=== PATIENT | female | born 1945 | race Caucasian/White ===

== ENCOUNTER 2022-04-16 16:24 | Inpatient (IN) ==
[2022-04-16] MEDS ORDERED: cefTRIAXone SODIUM 2,000 MG/70 ML BAG IV STA (18:59)
--- NOTE | 2022-04-16 19:04 | Emergency Department Note ---
Impression & Plan Cellulitis, Laceration of left lower leg, USP current use of anticoagulant ED Provider Note NAME: ALECIA GA AGE: 76 SEX: F : 1945 ARRIVES VIA: Walk-In INFORMANT: Patient ED PROVIDER(S): Lee Brandon DO CHIEF COMPLAINT: LLE redness HPI: Patient is a 76-year-old female who presents to the ER for left lower extremity redness and swelling. Patient is a from out of town and fell [place] her [place] the [place] on [place]. She came in and received stitches and was discharged. They were placed on the left hurst. Since then she has been taking her Keflex but notes the redness of her left lower extremity has been increasing and worsening. She denies any fevers or shaking chills. No headache or change in vision. No chest pain or shortness of breath. No other exacerbating or remitting factors. Pain is mild and a constant ache in her left anterior hurst. Worse with movement. ROS: See above HPI for pertinent positives & negatives. A total of 10 systems reviewed and were otherwise negative. PAST MEDICAL HISTORY:See Below PAST SURGICAL HISTORY:See Below FAMILY HISTORY:See Below SOCIAL HISTORY:See Below HOME MEDICATIONS:See Below ALLERGIES:See Below VITALS:See Below PHYSICAL EXAMINATION: GENERAL: Sitting up in bed, alert, well appearing, well nourished, no distress, non-toxic EYE EXAM: normal conjunctiva. OROPHARYNX: no exudate, no erythema, lips, buccal mucosa, and tongue normal and mucous membranes are moist NECK: supple, no nuchal rigidity, no adenopathy, non-tender LUNGS: Clear to auscultation. Normal chest wall mechanics HEART: no murmurs, S1 normal and S2 normal ABDOMEN: abdomen soft, non-tender, normo-active bowel sounds, no masses, no rebound or guarding. UPPER EXTREMITIES: upper extremities are grossly normal. LOWER EXTREMITIES:Laceration on left anterior hurst with sutures in place surrounding erythema from the foot up to the mid hurst with induration and swelling NEURO EXAM: Normal sensorium, cranial nerves II-XII grossly intact, normal speech, no gross weakness of arms, no gross weakness of legs. MEDICAL DECISION MAKING: Patient is a 76-year-old female who presents the ER for redness around the left lower extremity wound on Keflex.IV was established blood was obtained. Labs show no significant leukocytosis or anemia. BMP along with LFTs bilirubin was unremarkable. UA was contaminated. COVID-negative. Patient does appear to have cellulitis while on Keflex x1 was given IV antibiotics and discussed with hospitalist for further evaluation Dr. Anil Jesus. Triage Nursing notes reviewed. Limited review of prior medical records performed Vital Signs: reviewed and remarkable for HTN Differential diagnosis: Cellulitis, abscess, MRSA infection, DVT, necrotizing fasciitis, dermatitis, drug eruption, allergic reaction, as well as other pathologies. ER treatment provided: See below Diagnostics interpreted by me: ECG: none Cardiac Monitoring: An order was placed for continuous cardiac monitoring. The monitor shows a rate of 80 with sinus rhythm. Laboratory studies: As stated above and show below. Imaging studies: See below Consultation(s): Discussed with Dr. 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 Surgical History History of ankle surgery Social History Smoking Status: Former smoker Tobacco Type: Cigarettes and E-cigarettes / Vaping Preferred Language: Gambian Feels Safe at Home: Yes Allergies Allergies Allergy/AdvReac Type Severity Reaction Status Date / Time No Known Allergies Allergy Verified 04/16/22 19:21 Home Meds Home Medications Medication Instructions Recorded Confirmed albuterol sulfate 2.5 mg/3 mL 2.5 mg inhalation QPM 04/16/22 04/16/22 (0.083 %) solution for nebulization apixaban 5 mg tablet (Eliquis) 5 mg PO BID 04/16/22 04/16/22 bisoprolol 2.5 1 tab PO HS 04/16/22 04/16/22 mg-hydrochlorothiazide 6.25 mg tablet bupropion HCl 150 mg tablet,12 hr 150 mg PO BID 04/16/22 04/16/22 sustained-release calcium carbonate 600 mg-vitamin 1 tab PO BID 04/16/22 04/16/22 D3 10 mcg (400 unit) tablet cetirizine 10 mg tablet 10 mg PO DAILY 04/16/22 04/16/22 fluticasone 250 mcg-salmeterol 50 1 inh inhalation BID 04/16/22 04/16/22 mcg/dose blistr powdr for inhalation (Carole Inhub) hydrochlorothiazide 25 mg tablet 25 mg PO DAILY 04/16/22 04/16/22 omega 3-gii-xpg-fish oil 1,000 mg 1 cap PO DAILY 04/16/22 04/16/22 (120 mg-180 mg) capsule (Fish Oil) omeprazole 40 mg capsule,delayed 40 mg PO DAILY 04/16/22 04/16/22 release rosuvastatin 5 mg tablet (Crestor) 5 mg PO HS 04/16/22 04/16/22 tiotropium bromide 18 mcg capsule 18 mcg inhalation DAILY 04/16/22 04/16/22 with inhalation device (Spiriva with HandiHaler) Previous Rx's Medication Instructions Recorded cephalexin 500 mg capsule 500 mg PO TID 5 days #15 caps 04/14/22 Results & Data (ED) Vital Signs Vital Signs - 24 hr 04/16/22 16:38 04/16/22 18:41 04/16/22 19:06 Temperature 36.9 C Temperature Source Temporal Artery Scan Pulse Rate 72 Pulse Rate [Apical] 74 Pulse Rhythm Regular Pulse Strength Normal Respiratory Rate 20 18 Respiratory Effort / Characteristics Non-Labored Spontaneous Non-Labored Spontaneous Respiratory Depth Normal Normal Respiratory Pattern Regular Blood Pressure 152/75 H Blood Pressure [Right Arm] 145/93 H Blood Pressure Mean 100 Blood Pressure Mean [Right Arm] 110 Blood Pressure Position Sitting Blood Pressure Position [Right Arm] Lying Pulse Oximetry 95 93 95 Oxygen Delivery Method Room Air Room Air Room Air Sepsis Recent Fever Within 48 Hours No Sepsis New/Unexplained Change in Mental Status No Sepsis Action Taken by Nursing No Action Required 04/16/22 20:00 04/16/22 23:29 04/16/22 23:47 Temperature Temperature Source Pulse Rate Pulse Rate [Apical] 94 H 90 77 Pulse Rhythm Pulse Strength Respiratory Rate 18 18 18 Respiratory Effort / Characteristics Non-Labored Spontaneous Respiratory Depth Respiratory Pattern Blood Pressure Blood Pressure [Right Arm] 163/89 H 151/69 H Blood Pressure Mean Blood Pressure Mean [Right Arm] 113 96 Blood Pressure Position Blood Pressure Position [Right Arm] Sitting Pulse Oximetry 94 98 94 Oxygen Delivery Method Room Air Room Air Sepsis Recent Fever Within 48 Hours Sepsis New/Unexplained Change in Mental Status Sepsis Action Taken by Nursing Laboratory Data Result diagrams: 04/16/22 18:45 04/16/22 18:45 Lab Results 04/16/22 04/16/22 04/16/22 Range/Units 18:45 18:45 19:00 WBC 9.40 (4.8-10.8) K/ul RBC 4.20 (3.93-5.22) M/uL Hgb 14.4 (12.0-16.0) g/dl Hct 43.7 (34.1-44.9) % MCV 104.0 H (80.0-100.0) fL MCH 34.3 H (25.0-34.0) pg MCHC 33.0 (32.0-36.0) g/dL RDW Std Deviation 50.6 H (36.4-46.3) fL RDW Coeff of Theo 13.2 (11.5-14.5) % Plt Count 207 (130-400) K/uL MPV 9.9 (9.4-12.3) fL Immature Gran % (Auto) 0.2 % Neut % (Auto) 64.7 % Lymph % (Auto) 22.4 % [place] % (Auto) 9.9 % Eos % (Auto) 2.2 % Baso % (Auto) 0.6 % Neut # (Auto) 6.07 (1.4-6.5) K/uL Lymph # (Auto) 2.11 (1.2-3.4) K/uL [place] # (Auto) 0.93 H (0.24-0.82) K/uL Eos # (Auto) 0.21 (0-0.50) K/uL Baso # (Auto) 0.06 (0-0.2) K/uL Immature Gran # (Auto) 0.02 (0.00-0.02) K/uL Sodium 135 L (136-145) mmol/L Potassium 3.7 (3.5-5.1) mmol/L Chloride 99 (98-107) mmol/L Carbon Dioxide 29 (21-32) mmol/L Anion Gap 7 (3-11) BUN 16 (6-23) mg/dl Creatinine 1.20 (0.6-1.2) mg/dl Est Cr Clr Drug Dosing 46.1 ml/min Est GFR ( Amer) 50.1 ml/min Est GFR (Non-Af Amer) 43.3 ml/min BUN/Creatinine Ratio 13.3 (10-20) Glucose 111 H (70-99(Fasting)) mg/dl Calcium 9.8 (8.5-10.1) mg/dl Magnesium 2.0 (1.7-2.4) mg/dl Total Bilirubin 0.9 (0.2-1.0) mg/dl AST 66 H (13-39) U/L ALT 44 (7-52) U/L Alkaline Phosphatase 92 (34-104) U/L Total Creatine Kinase 127 (26-192) U/L Total Protein 7.5 (6.0-8.3) gm/dl Albumin 4.3 (3.4-5.0) gm/dl Globulin 3.2 (2.5-4.0) gm/dl Albumin/Globulin Ratio 1.3 (0.9-2) Urine Color Urine Appearance (Clear) Urine pH (4.5-7.5) Ur Specific [place] (1.000-1.030) Urine Protein (Negative) Urine Glucose (UA) (Negative) Urine Ketones (Negative) Urine Blood (Negative) Urine Nitrite (Negative) Urine Bilirubin (Negative) Urine Urobilinogen (Negative) Ur Leukocyte Esterase (Negative) Urine WBC (Auto) (0-5) /hpf Urine RBC (Auto) (0-4) /hpf U Hyaline Cast (Auto) (0-5) /lpf U Epithel Cells (Auto) (0-5) /lpf Urine Bacteria (Auto) (Negative) SARS-CoV-2, RNA, NAAT NEGATIVE (NEGATIVE) 04/16/22 Range/Units 20:10 WBC (4.8-10.8) K/ul RBC (3.93-5.22) M/uL Hgb (12.0-16.0) g/dl Hct (34.1-44.9) % MCV (80.0-100.0) fL MCH (25.0-34.0) pg MCHC (32.0-36.0) g/dL RDW Std Deviation (36.4-46.3) fL RDW Coeff of Theo (11.5-14.5) % Plt Count (130-400) K/uL MPV (9.4-12.3) fL Immature Gran % (Auto) % Neut % (Auto) % Lymph % (Auto) % [place] % (Auto) % Eos % (Auto) % Baso % (Auto) % Neut # (Auto) (1.4-6.5) K/uL Lymph # (Auto) (1.2-3.4) K/uL [place] # (Auto) (0.24-0.82) K/uL Eos # (Auto) (0-0.50) K/uL Baso # (Auto) (0-0.2) K/uL Immature Gran # (Auto) (0.00-0.02) K/uL Sodium (136-145) mmol/L Potassium (3.5-5.1) mmol/L Chloride (98-107) mmol/L Carbon Dioxide (21-32) mmol/L Anion Gap (3-11) BUN (6-23) mg/dl Creatinine (0.6-1.2) mg/dl Est Cr Clr Drug Dosing ml/min Est GFR ( Amer) ml/min Est GFR (Non-Af Amer) ml/min BUN/Creatinine Ratio (10-20) Glucose (70-99(Fasting)) mg/dl Calcium (8.5-10.1) mg/dl Magnesium (1.7-2.4) mg/dl Total Bilirubin (0.2-1.0) mg/dl AST (13-39) U/L ALT (7-52) U/L Alkaline Phosphatase (34-104) U/L Total Creatine Kinase (26-192) U/L Total Protein (6.0-8.3) gm/dl Albumin (3.4-5.0) gm/dl Globulin (2.5-4.0) gm/dl Albumin/Globulin Ratio (0.9-2) Urine Color Yellow Urine Appearance Clear (Clear) Urine pH 5.5 (4.5-7.5) Ur Specific [place] 1.013 (1.000-1.030) Urine Protein Negative (Negative) Urine Glucose (UA) Negative (Negative) Urine Ketones Trace H (Negative) Urine Blood Negative (Negative) Urine Nitrite Negative (Negative) Urine Bilirubin Negative (Negative) Urine Urobilinogen Negative (Negative) Ur Leukocyte Esterase 1+ H (Negative) Urine WBC (Auto) 10-30 H (0-5) /hpf Urine RBC (Auto) 0-4 (0-4) /hpf U Hyaline Cast (Auto) 0 (0-5) /lpf U Epithel Cells (Auto) >30 H (0-5) /lpf Urine Bacteria (Auto) 1+ H (Negative) SARS-CoV-2, RNA, NAAT (NEGATIVE) Administered Medications Discontinued Medications Ceftriaxone Sodium (Rocephin) 2,000 mg in 70 mls @ 140 mls/hr IV NOW STA Stop: 04/16/22 19:28 Last Infusion: 04/16/22 19:58 Dose: 0 mls/hr Documented By: Admin: 04/16/22 19:19 Dose: 140 mls/hr Documented By: OL Doxycycline Hyclate 100 mg/ (Dextrose) 110 mls @ 50 mls/hr IV NOW STA Stop: 04/16/22 23:18 Last Admin: 04/16/22 22:08 Dose: 50 mls/hr Documented By: RIVERA Ioversol (Optiray 300 100ml) 81 ml IV ONCE ONE Stop: 04/16/22 22:52 Last Admin: 04/16/22 22:52 Dose: 81 ml Documented By: JOSE MIGUEL Ipratropium [place] (Ipratropium [place] Neb Soln 0.02% 2.5 Ml Vial) 0.5 mg INH NOW STA Stop: 04/16/22 22:33 Last Admin: 04/16/22 23:46 Dose: 0.5 mg Documented By: BRFletcher Ketorolac Tromethamine (Ketorolac Tromethamine 15 Mg/Ml Vial) 15 mg IV NOW ONE Stop: 04/16/22 22:29 Last Admin: 04/16/22 23:26 Dose: 15 mg Documented By: VIMAL Levalbuterol HCl (Levalbuterol 1.25mg/0.5ml Neb) 1.25 mg INH NOW STA Stop: 04/16/22 22:33 Last Admin: 04/16/22 23:45 Dose: 1.25 mg Documented By: BRFletcher Lisinopril (Lisinopril 2.5 Mg Tab) 2.5 mg PO ONE ONE Stop: 04/16/22 21:10 Last Admin: 04/16/22 22:08 Dose: 2.5 mg Documented By: OL Metoprolol Tartrate (Metoprolol Tartrate 25 Mg Tab) 25 mg PO NOW STA Stop: 04/16/22 22:29 Last Admin: 04/16/22 23:29 Dose: 25 mg Documented By: VIMAL Discharge Plan Visit Data Chief Complaint: Infection Stated Complaint: LAC ON L LEG. 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 cetirizine 10 mg tablet 10 mg PO DAILY omeprazole 40 mg capsule,delayed release(DR/EC) 40 mg PO DAILY bisoprolol-hydrochlorothiazide 2.5-6.25 mg tablet 1 tab PO HS hydrochlorothiazide 25 mg tablet 25 mg PO DAILY rosuvastatin [Crestor] 5 mg tablet 5 mg PO HS Spiriva with HandiHaler 18 mcg capsule, w/inhalation device 18 mcg INHALATION DAILY calcium carbonate-vitamin D3 600 mg-10 mcg (400 unit) tablet 1 tab PO BID omega 1-jxz-nzd-fish oil [Fish Oil] 1,000 mg (120 mg-180 mg) Capsule 1 cap PO DAILY Eliquis 5 mg tablet 5 mg PO BID Referrals Referrals: PCP,NO [Primary Care Provider] -
[2022-04-16 19:22] LABS: Basophils # (auto) 0.06 K/uL (0-0.2); Basophils % (auto) 0.6 %; Eosinophils # (auto) 0.21 K/uL (0-0.50); Eosinophils % (auto) 2.2 %; Hematocrit (blood only) 43.7 % (34.1-44.9); Hemoglobin 14.4 g/dl (12.0-16.0); Immature Granulocytes # (auto) 0.02 K/uL (0.00-0.02); Immature Granulocytes % (auto) 0.2 %; Lymphocytes # (auto) 2.11 K/uL (1.2-3.4); Lymphocytes % (auto) 22.4 %; Mean Corpuscular Hemoglobin 34.3 pg (25.0-34.0); Mean Platelet Volume 9.9 fL (9.4-12.3); Monocytes # (auto) 0.93 K/uL (0.24-0.82); Monocytes % (auto) 9.9 %; Neutrophils # (auto) 6.07 K/uL (1.4-6.5); Neutrophils % (auto) 64.7 %; Platelet Count 207 K/uL (130-400); RDW Coefficient of Variation 13.2 % (11.5-14.5); RDW Standard Deviation 50.6 fL (36.4-46.3)
[2022-04-16 19:36] LABS: Albumin Globulin Ratio 1.3 (0.9-2); Albumin Level 4.3 gm/dl (3.4-5.0); BUN Creatinine Ratio 13.3 (10-20); Bilirubin,Total 0.9 mg/dl (0.2-1.0); Calcium 9.8 mg/dl (8.5-10.1); Creatinine Clr Calc Pharmacy 46.1 ml/min; Est GFR (African American) 50.1 ml/min; Est GFR (Non-African American) 43.3 ml/min; Globulin 3.2 gm/dl (2.5-4.0); Potassium 3.7 mmol/L (3.5-5.1); Total Protein 7.5 gm/dl (6.0-8.3)
[2022-04-16] MEDS ORDERED: DOXYCYCLINE HYCLATE 100 MG in DEXTROSE 5% 100 ML IV STA (21:07)
[2022-04-16 21:08] LABS: Appearance Urine Clear (Clear); Bacteria Urine Automated 1+ (Negative); Bilirubin Urine Negative (Negative); Blood Urine Negative (Negative); Cast Urine Automated 0 /lpf (0-5); Color Urine Yellow; Epithelial Cell Urine Auto >30 /lpf (0-5); Glucose Urine UA Negative (Negative); Ketones Urine Trace (Negative); Leukocyte Esterase Urine 1+ (Negative); Nitrite Urine Negative (Negative); Protein Urine Negative (Negative); RBC Urine Automated 0-4 /hpf (0-4); Specific Gravity Urine 1.013 (1.000-1.030); Urobilinogen Urine Negative (Negative); pH Urine 5.5 (4.5-7.5)
[2022-04-16] MEDS ORDERED: lisinopril 2.5 MG TAB PO ONE (21:09)
[2022-04-16] MEDS ORDERED: XOPENEX/ATROVENT 1.25mg/0.5MG NEB COMBO NEB STA (22:10)
--- NOTE | 2022-04-16 22:23 | History & Physical Report ---
Date of Service April 16, 2022 Assessment & Plan (1) Left leg swelling: Plan: History traumatic leg wound. Possible hematoma/necrotizing fasciitis of initial read. Patient not septic for now/nontoxic. Ongoing elbow Rx for Eliquis hx COPD, baseline wheezing and exertional SOB symptoms hypertension, slightly elevated secondary discomfort hyperlipidemia on statin Rx anxiety/mood disorder, at baseline prediabetes past tobacco abuse GMF Daptomycin, Zosyn, Flagyl for possible necrotizing fasciitis Orthopedics consult Re: Traumatic RLE wound/swelling, possible necrotizing fasciitis on initial CT read N.p.o. until patient seen by Orthopedics Appropriate to hold Eliquis for now given hematoma Check hemoglobin A1c DVT prophylaxis. SCDs while Eliquis on hold Full code ADDENDUM Case discussed with Dr. Morrison (Orthopedics). He recommends tertiary hospital transfer given necrotizing fasciitis on initial CT read. Case discussed with Drs. Little (Orthopedics) and Rohith (General Surgery) of [facility]. Medical management at [facility] recommended. Transfer request declined until patient evaluated by [facility] Orthopedics. Dr. Morrison updated of [facility] specialists recommendations. He recommends consulting General Surgery for necrotizing fasciitis concerns on initial CT read as well. Case discussed with Dr. Richards of General Surgery. Text document was generated using [employer] voice recognition software. It may contain grammatical or spelling errors. Kindly contact undersigned for clarification of any documentation item in question. History of Present Illness Chief Complaint: Worsening left leg infection Primary Care Provider: Dr. Estephania Ramírez from [place], [place] History obtained from patient and records. Medical history significant for COPD, A. fib on Eliquis, hypertension, hyperlipidemia, chronic balance issues from inner ear problems, anxiety/mood disorder, prediabetes, past tobacco abuse. Patient is a resident of [place], [place] currently visiting family at [facility] since last week. 2 days ago, patient [place] a [place] the [place] secondary to her balance issues. No LOC, no syncope, no head trauma, no chest pain, no SOB. Traumatic left leg laceration resulting from fall. Patient brought to the [facility] ER for evaluation. Wound subsequently sutured. Patient discharged on Keflex course. Worsening left leg wound, redness, painful leg swelling with serosanguineous drainage for the next few days. No chest pain, no SOB. Some chills, no actual fever. Patient returned to ER. IV ceftriaxone administered at the ER. Medical History as above Surgical History : Ankle surgery, hip surgery, nasal septoplasty Family History : Heart disease Personal/Social history : Past tobacco abuse, occasional EtOH intake, retired from office work Allergies Allergy/AdvReac Type Severity Reaction Status Date / Time No Known Allergies Allergy Verified 04/16/22 19:21 Home Medications Medication Instructions Recorded Confirmed Type cephalexin 500 mg capsule 500 mg PO TID 5 days #15 caps 04/14/22 04/16/22 Rx albuterol sulfate 2.5 mg/3 mL 2.5 mg inhalation QPM 04/16/22 04/16/22 History (0.083 %) solution for nebulization apixaban 5 mg tablet (Eliquis) 5 mg PO BID 04/16/22 04/16/22 History bisoprolol 2.5 1 tab PO HS 04/16/22 04/16/22 History mg-hydrochlorothiazide 6.25 mg tablet bupropion HCl 150 mg tablet,12 hr 150 mg PO BID 04/16/22 04/16/22 History sustained-release calcium carbonate 600 mg-vitamin 1 tab PO BID 04/16/22 04/16/22 History D3 10 mcg (400 unit) tablet cetirizine 10 mg tablet 10 mg PO DAILY 04/16/22 04/16/22 History fluticasone 250 mcg-salmeterol 50 1 inh inhalation BID 04/16/22 04/16/22 History mcg/dose blistr powdr for inhalation (Wixela Inhub) hydrochlorothiazide 25 mg tablet 25 mg PO DAILY 04/16/22 04/16/22 History omega 1-lgd-xnc-fish oil 1,000 mg 1 cap PO DAILY 04/16/22 04/16/22 History (120 mg-180 mg) capsule (Fish Oil) omeprazole 40 mg capsule,delayed 40 mg PO DAILY 04/16/22 04/16/22 History release rosuvastatin 5 mg tablet (Crestor) 5 mg PO HS 04/16/22 04/16/22 History tiotropium bromide 18 mcg capsule 18 mcg inhalation DAILY 04/16/22 04/16/22 History with inhalation device (Spiriva with HandiHaler) Past Med/Surg History Medical History Cardiac disease longterm current use of anticoagulant Surgical History History of ankle surgery Social History Smoking Status: Former smoker Tobacco Type: Cigarettes and E-cigarettes / Vaping Second Hand Exposure: No; Do You Dip or Chew Tobacco: No; Tobacco Cessation Education Requested by Patient: No Hx Alcohol Use: Yes Alcohol type: wine Hx Substance Use: No Preferred Language: Welsh Communication Ability: Effective Nurse Discharge Planner Required: No Beliefs That Will Affect Care: None Current Living Situation: Family Current Living Situation Comment: Pt son and lives with pt in downstairs appartment Other Information That Helps Us Care for You: No Feels Safe at Home: Yes Safety Concerns: Feels Safe At This Time Assistive Devices: Cane and Glasses Review of Systems Review of Systems: As per HPI, all other systems reviewed and negative Physical Exam Physical Exam: GENERAL: Comfortable, pleasant, obese, no respiratory distress SKIN: Normal color, warm HEENT: Bespectacled, [place] palpebral conjunctivae, no ptosis, dry buccal mucosa NECK : Supple, no tenderness CHEST : Decreased breath sounds, expiratory wheezes, no tenderness HEART : Irregular, no obvious murmurs ABDOMEN: Some distention, nontender EXTREMITIES : Tender LLE induration with sutures in place, no other conspicuous deformities noted NEUROLOGIC : Coherent, no facial asymmetry, no other gross focality Results & Data Results & Data ([facility]) Vital Signs (Past 12 Hours) Vital Signs Temp Pulse Pulse Resp BP BP Pulse Ox 04/16/22 20:00 94 H 18 163/89 H 94 04/16/22 19:06 95 04/16/22 18:41 74 18 145/93 H 93 04/16/22 16:38 36.9 C 72 20 152/75 H 95 O2 Del Method 04/16/22 20:00 Room Air 04/16/22 19:06 Room Air 04/16/22 18:41 Room Air 04/16/22 16:38 Room Air Laboratory Results Laboratory Results WBC 9.40 K/ul (4.8-10.8) 04/16/22 18:45 RBC 4.20 M/uL (3.93-5.22) 04/16/22 18:45 Hgb 14.4 g/dl (12.0-16.0) 04/16/22 18:45 Hct 43.7 % (34.1-44.9) 04/16/22 18:45 MCV 104.0 fL (80.0-100.0) H 04/16/22 18:45 MCH 34.3 pg (25.0-34.0) H 04/16/22 18:45 MCHC 33.0 g/dL (32.0-36.0) 04/16/22 18:45 RDW Std Deviation 50.6 fL (36.4-46.3) H 04/16/22 18:45 RDW Coeff of Theo 13.2 % (11.5-14.5) 04/16/22 18:45 Plt Count 207 K/uL (130-400) 04/16/22 18:45 MPV 9.9 fL (9.4-12.3) 04/16/22 18:45 Immature Gran % (Auto) 0.2 % 04/16/22 18:45 Neut % (Auto) 64.7 % 04/16/22 18:45 Lymph % (Auto) 22.4 % 04/16/22 18:45 [place] % (Auto) 9.9 % 04/16/22 18:45 Eos % (Auto) 2.2 % 04/16/22 18:45 Baso % (Auto) 0.6 % 04/16/22 18:45 Neut # (Auto) 6.07 K/uL (1.4-6.5) 04/16/22 18:45 Lymph # (Auto) 2.11 K/uL (1.2-3.4) 04/16/22 18:45 [place] # (Auto) 0.93 K/uL (0.24-0.82) H 04/16/22 18:45 Eos # (Auto) 0.21 K/uL (0-0.50) 04/16/22 18:45 Baso # (Auto) 0.06 K/uL (0-0.2) 04/16/22 18:45 Immature Gran # (Auto) 0.02 K/uL (0.00-0.02) 04/16/22 18:45 Sodium 135 mmol/L (136-145) L 04/16/22 18:45 Potassium 3.7 mmol/L (3.5-5.1) 04/16/22 18:45 Chloride 99 mmol/L (98-107) 04/16/22 18:45 Carbon Dioxide 29 mmol/L (21-32) 04/16/22 18:45 Anion Gap 7 (3-11) 04/16/22 18:45 BUN 16 mg/dl (6-23) 04/16/22 18:45 Creatinine 1.20 mg/dl (0.6-1.2) 04/16/22 18:45 Est Cr Clr Drug Dosing 46.1 ml/min 04/16/22 18:45 Est GFR ( Amer) 50.1 ml/min 04/16/22 18:45 Est GFR (Non-Af Amer) 43.3 ml/min 04/16/22 18:45 BUN/Creatinine Ratio 13.3 (10-20) 04/16/22 18:45 Glucose 111 mg/dl (70-99(Fasting)) H 04/16/22 18:45 Calcium 9.8 mg/dl (8.5-10.1) 04/16/22 18:45 Total Bilirubin 0.9 mg/dl (0.2-1.0) 04/16/22 18:45 AST 66 U/L (13-39) H 04/16/22 18:45 ALT 44 U/L (7-52) 04/16/22 18:45 Alkaline Phosphatase 92 U/L (34-104) 04/16/22 18:45 Total Protein 7.5 gm/dl (6.0-8.3) 04/16/22 18:45 Albumin 4.3 gm/dl (3.4-5.0) 04/16/22 18:45 Globulin 3.2 gm/dl (2.5-4.0) 04/16/22 18:45 Albumin/Globulin Ratio 1.3 (0.9-2) 04/16/22 18:45 Urine Color Yellow 04/16/22 20:10 Urine Appearance Clear (Clear) 04/16/22 20:10 Urine pH 5.5 (4.5-7.5) 04/16/22 20:10 Ur Specific [place] 1.013 (1.000-1.030) 04/16/22 20:10 Urine Protein Negative (Negative) 04/16/22 20:10 Urine Glucose (UA) Negative (Negative) 04/16/22 20:10 Urine Ketones Trace (Negative) H 04/16/22 20:10 Urine Blood Negative (Negative) 04/16/22 20:10 Urine Nitrite Negative (Negative) 04/16/22 20:10 Urine Bilirubin Negative (Negative) 04/16/22 20:10 Urine Urobilinogen Negative (Negative) 04/16/22 20:10 Ur Leukocyte Esterase 1+ (Negative) H 04/16/22 20:10 Urine WBC (Auto) 10-30 /hpf (0-5) H 04/16/22 20:10 Urine RBC (Auto) 0-4 /hpf (0-4) 04/16/22 20:10 U Hyaline Cast (Auto) 0 /lpf (0-5) 04/16/22 20:10 U Epithel Cells (Auto) >30 /lpf (0-5) H 04/16/22 20:10 Urine Bacteria (Auto) 1+ (Negative) H 04/16/22 20:10 SARS-CoV-2, RNA, NAAT NEGATIVE (NEGATIVE) 04/16/22 19:[address] left tibia-fibula initial read: Nonspecific subcutaneous edema of the calf into a greater degree the foot is noted. Along the lateral fascia there appears to be a more organized fluid collection measuring up to 1 cmin thicknesswith a fewfoci of gas, this is concerning for necrotizing fasciitis in the appropriate clinical setting. Additionallya hyperdense fluid collection anterior to the proximal hurst of concern for a hematoma measuring 1.1 x 3.4 x 8.7 cm. No fracture or dislocation. Chest x-ray as per my interpretation interstitial infiltrates
[2022-04-16] MEDS ORDERED: KETOROLAC TROMETHAMINE 15 MG/ML VIAL IV ONE (22:28)
[2022-04-16] MEDS ORDERED: METOPROLOL TARTRATE 25 MG TAB PO STA (22:28)
[2022-04-16] MEDS ORDERED: IPRATROPIUM BROMIDE NEB SOLN 0.02% 2.5 ML VIAL INH STA (22:32)
[2022-04-16] MEDS ORDERED: LEVALBUTEROL 1.25MG/0.5ML NEB INH STA (22:32)
[2022-04-16] MEDS ORDERED: OPTIRAY 300 100mL IV ONE (22:51)
[2022-04-17] MEDS ORDERED: PIPERACILLIN/TAZOBACTAM 4.5 GM/120 ML BAG IV ONE (00:08)
[2022-04-17] MEDS ORDERED: CLINDAMYCIN/D5W 600 MG/50 ML BAG IV ONE (00:14)
[2022-04-17] MEDS ORDERED: DAPTOmycin 300 MG in SYRINGE 0 ML IV STA (00:25)
--- NOTE | 2022-04-17 00:27 | Communication Note ---
Date of Service: April 17, 2022
[2022-04-17] MEDS ORDERED: SODIUM CHLORIDE 0.9% 1000ML 1,000 ML IV ONE (01:08)
[2022-04-17] MEDS ORDERED: MoRPHine SULFATE 2 MG/ML CARP IV PRN (02:18)
[2022-04-17] MEDS ORDERED: traMADol HCL 50 MG TABLET PO PRN (02:18)
[2022-04-17] MEDS ORDERED: ACETAMINOPHEN 325 MG TAB PO PRN (02:18)
[2022-04-17] MEDS ORDERED: FLUTICASONE/SALMETEROL 250/50 (ADVAIR) 14 PUFF/1 INHALER INH SCH (02:18)
[2022-04-17] MEDS ORDERED: PROMETHAZINE HCL 12.5 MG in SODIUM CHLORIDE 0.9% 50 ML IV PRN (02:18)
[2022-04-17] MEDS: buPROPion SR 150 MG TABCR PO SCH ×3 (02:58→21:11)
[2022-04-17] MEDS: FLUTICASONE/VILANTEROL 200/25MCG 14 PUFFS/INHALER INH SCH (02:59)
[2022-04-17] MEDS: PIPERACILLIN/TAZOBACTAM 4.5 GM in DEXTROSE 5% 100 ML IV SCH ×3 (05:44→21:22)
[2022-04-17 06:41] LABS: Basophils # (auto) 0.07 K/uL (0-0.2); Basophils % (auto) 0.9 %; Eosinophils # (auto) 0.24 K/uL (0-0.50); Eosinophils % (auto) 2.9 %; Hematocrit (blood only) 39.1 % (34.1-44.9); Hemoglobin 13.1 g/dl (12.0-16.0); Immature Granulocytes # (auto) 0.02 K/uL (0.00-0.02); Immature Granulocytes % (auto) 0.2 %; Lymphocytes # (auto) 1.47 K/uL (1.2-3.4); Mean Corpuscular Hemoglobin 34.3 pg (25.0-34.0); Mean Corpuscular Hgb Conc 33.5 g/dL (32.0-36.0); Mean Corpuscular Volume 102.4 fL (80.0-100.0); Mean Platelet Volume 9.5 fL (9.4-12.3); Monocytes # (auto) 0.74 K/uL (0.24-0.82); Monocytes % (auto) 9.1 %; Neutrophils # (auto) 5.61 K/uL (1.4-6.5); Neutrophils % (auto) 68.9 %; Platelet Count 177 K/uL (130-400); RDW Coefficient of Variation 13.2 % (11.5-14.5); RDW Standard Deviation 49.9 fL (36.4-46.3); Red Blood Count 3.82 M/uL (3.93-5.22); White Blood Count 8.15 K/ul (4.8-10.8)
[2022-04-17 07:16] LABS: Estimated Average Glucose 114 mg/dl; Hemoglobin A1C 5.6 % (4.5-5.6)
[2022-04-17 07:34] LABS: BUN Creatinine Ratio 11.8 (10-20); Calcium 8.8 mg/dl (8.5-10.1); Creatinine Clr Calc Pharmacy 50.9 ml/min; Est GFR (African American) 55.7 ml/min; Est GFR (Non-African American) 48.1 ml/min; Potassium 3.8 mmol/L (3.5-5.1)
--- NOTE | 2022-04-17 07:34 | Orthopedic Consultation ---
Date of Service April 17, 2022 Assessment & Plan (1) Laceration of left lower leg: This patient has a left lower extremity leg laceration with associated hematoma which is maybe made a little worse by her Eliquis use. There is no signs of necrotizing fasciitis and even questionable whether there is any cellulitis. Is only been 48 hours and she has been on Keflex. She does have a very tenuous skin and soft tissue envelope.. This patient does not need surgical management at this point. Elevation is pro bably most important. She can weight-bear as tolerated. Most important thing is just elevation. While in the hospital, I think is appropriate to proceed with IV antibiotics. Might be worth holding her Eliquis for a day or 2. Will follow her along but this does not need surgical management at this point. Any orthopedic questions can be directly [phone] History of Present Illness Reason for Consultation: . Left leg laceration with possible infection Requesting Physician: . Attending Physician: Cindy Marie MD . Patient is a 76-year-old female on chronic anticoagulation who Svetlana injury her to her leg a little over 2 days ago. She is from out of town and was at a cabin of a family member and got up until the night to go to the bathroom. She bumped her leg on some type of wooden table. Had a fairly large wound. She came to the ER where it was sewed closed. She was put on Keflex. Her tetanus is up-to-date. She had increasing swelling over the past day or 2 and presented emergency room last evening. She was admitted for the medicine service with concerns of infection and concerns of necrotizing fasciitis. Allergies Allergy/AdvReac Type Severity Reaction Status Date / Time No Known Allergies Allergy Verified 04/16/22 19:21 Home Medications Medication Instructions Recorded Confirmed Type cephalexin 500 mg capsule 500 mg PO TID 5 days #15 caps 04/14/22 04/16/22 Rx albuterol sulfate 2.5 mg/3 mL 2.5 mg inhalation QPM 04/16/22 04/16/22 History (0.083 %) solution for nebulization apixaban 5 mg tablet (Eliquis) 5 mg PO BID 04/16/22 04/16/22 History bisoprolol 2.5 1 tab PO HS 04/16/22 04/16/22 History mg-hydrochlorothiazide 6.25 mg tablet bupropion HCl 150 mg tablet,12 hr 150 mg PO BID 04/16/22 04/16/22 History sustained-release calcium carbonate 600 mg-vitamin 1 tab PO BID 04/16/22 04/16/22 History D3 10 mcg (400 unit) tablet cetirizine 10 mg tablet 10 mg PO DAILY 04/16/22 04/16/22 History fluticasone 250 mcg-salmeterol 50 1 inh inhalation BID 04/16/22 04/16/22 History mcg/dose blistr powdr for inhalation (Wixela Inhub) hydrochlorothiazide 25 mg tablet 25 mg PO DAILY 04/16/22 04/16/22 History omega 0-hrk-xoi-fish oil 1,000 mg 1 cap PO DAILY 04/16/22 04/16/22 History (120 mg-180 mg) capsule (Fish Oil) omeprazole 40 mg capsule,delayed 40 mg PO DAILY 04/16/22 04/16/22 History release rosuvastatin 5 mg tablet (Crestor) 5 mg PO HS 04/16/22 04/16/22 History tiotropium bromide 18 mcg capsule 18 mcg inhalation DAILY 04/16/22 04/16/22 History with inhalation device (Spiriva with HandiHaler) Past Med/Surg History Medical History Cardiac disease nursing home current use of anticoagulant Surgical History History of ankle surgery Social History Smoking Status: Former smoker Tobacco Type: Cigarettes and E-cigarettes / Vaping Second Hand Exposure: No; Do You Dip or Chew Tobacco: No; Tobacco Cessation Education Requested by Patient: No Hx Alcohol Use: Yes Alcohol type: wine Hx Substance Use: No Preferred Language: Malay Communication Ability: Effective Label Printer Required: No Beliefs That Will Affect Care: None Current Living Situation: Family Current Living Situation Comment: Pt son and lives with pt in downstairs appartment Other Information That Helps Us Care for You: No Feels Safe at Home: Yes Safety Concerns: Feels Safe At This Time Assistive Devices: Cane and Glasses Review of Systems All systems reviewed & are unremarkable except as noted in HPI & below. Physical Exam . Physical examination of the left leg reveals a very large U-shaped laceration of the front of her hurst. It is well approximated with some nylon sutures. There is a bit of a hematoma and some of blistering of the skin distally. Fairly mild swelling. She can dorsiflex and plantarflex her foot appropriately. Fairly minimal redness. No tenseness to this. No signs of compartment issues. As she is neurologically intact. Results & Data Results & Data Laboratory Results . White blood cell counts normal. Diagnostic Findings . CT scan was reviewed. Just show a hematoma and collection of some low fluid around the wound site. There is little bit of air in the subcutaneous tissues associated with the blisters. PG Care Time/CCT Total # of Minutes Spent Total Time Spent with Patient: Total time spent is greater than 50% in coordination of care (as documented) at patient's floor/unit and/or counseling patient: Coding Level of Care Code 91807 Inpt Consult Level 4 Diagnoses Laceration of left lower leg S81.812A
--- NOTE | 2022-04-17 07:38 | CT Scan Report ---
CT tib/fib LT w con HISTORY: 76 years-old Female swelling acute pain and swelling of the left lower leg COMPARISON: Tibia and fibula radiographs 04/14/2022 TECHNIQUE: Multiple axial CT images of the left tibia and fibula were obtained following the intraven ous administration of 81 mL Optiray 320. A dose lowering technique was used consistent with the [facility] ipa of MARLO. FINDINGS: There is moderate diffuse subcutaneous edema, most pronounced anterolaterally. Trace focus of subcuta neous emphysema noted on image 66 series 3 within the proximal pretibial tissues. In the proximal pre tibial subcutaneous hematoma, 1.2 x 3.9 x 6.5 cm. Irregularity of the skin surface anteriorly is sugg estive of probable laceration. No opaque foreign body. Tendons and ligaments are suboptimally evaluat ed by CT technique. Mild arterial calcifications. Osteoarthritis of the foot and ankle. There are a few loose bodies of the knee measuring up to 10 mm within the intercondylar notch posteriorly. No fracture findings of the distal tibia and fibula. ORIF changes of the distal fibula without evidence of hardware complication. IMPRESSION: 1. No acute osseous abnormality. 2. Subcutaneous edema with 6.5 cm pretibial subcutaneous hematoma. 3. Minimal subcutaneous emphysema within the pretibial tissues is likely secondary to penetrating tra shannon. Gas-forming organism considered less likely. ACT 112: Negative or not required by law. The above report was generated using voice recognition software. It may contain grammatical, syntax o r spelling errors. Electronically signed by: Julius aTvarez M.D. 04/17/2022 7:37 AM
--- NOTE | 2022-04-17 08:03 | XRay Report ---
XR chest 1V portable CLINICAL HISTORY: wheeze COMPARISON STUDY: No previous studies for comparison. FINDINGS: Lung volumes are normal. No pneumothorax or pleural effusion is present. No consolidation i s identified to suggest pneumonia. There is mild cardiomegaly. Mild nonspecific interstitial thickeni ng is present. IMPRESSION: 1. No consolidation to suggest pneumonia. 2. Mild nonspecific interstitial thickening. ACT 112: Negative or not required by law. Electronically signed by: Naresh Arriaga M.D. 04/17/2022 8:02 AM
[2022-04-17] MEDS: CETIRIZINE HCL 10 MG TABLET PO SCH (08:23)
[2022-04-17] MEDS: CLINDAMYCIN/D5W 600 MG/50 ML BAG IV SCH ×2 (08:23→16:48)
[2022-04-17] MEDS: PANTOprazole 40 MG TAB PO SCH (08:23)
[2022-04-17] MEDS: METOPROLOL TARTRATE 25 MG TAB PO SCH ×2 (08:23→21:18)
[2022-04-17] MEDS: UMECLIDINIUM BROMIDE 62.5MCG/BLISTER 7 PUFFS/INHALER INH SCH (08:24)
[2022-04-17] MEDS ORDERED: TIOTROPIUM BROMIDE 5 PUFF/90 MCG INH INH SCH (09:00)
--- NOTE | 2022-04-17 11:08 | Surgery Consultation ---
Date of Consultation April 17, 2022 Assessment & Plan (1) Cellulitis: pt is admit to hospital for left lower leg laceration with cellulitis, hematoma, IMP: left lower leg hematoma, cellulitis Plan no surgery indication now, conservative treatment, Iv antibiotic, contribution solicitor surgeon will F/u this weekend, Thanks, History of Present Illness Reason for Consultation: left lower leg laceration, hematoma Requesting Physician: Cindy Marie MD Attending Physician: Cindy Marie MD History of Present Illness Chief Complaint: Worsening left leg infection Primary Care Provider: Dr. Estephania Ramírez from [place], [place] History obtained from patient and records. Medical history significant for COPD, A. fib on Eliquis, hypertension, hyperlipidemia, chronic balance issues from inner ear problems, anxiety/mood disorder, prediabetes, past tobacco abuse. Patient is a resident of [place], [place] currently visiting family at [facility] since last week. 2 days ago, patient had a fall at the family cabin secondary to her balance issues. No LOC, no syncope, no head trauma, no chest pain, no SOB. Traumatic left leg laceration resulting from fall. Patient brought to the [facility] ER for evaluation. Wound subsequently sutured. Patient discharged on Keflex course. Worsening left leg wound, redness, painful leg swelling with serosanguineous drainage for the next few days. No chest pain, no SOB. Some chills, no actual fever. Patient returned to ER. IV ceftriaxone administered at the ER. I ( Linwood Ceron MD ) consult left lower leg laceration with hematoma, I reviewed pt's H/P, labs, CT scan with pt, Medical Historyas above Surgical History : Ankle surgery, hip surgery, nasal septoplasty Family History : Heart disease Personal/Social history : Past tobacco abuse, occasional EtOH intake, retired from office workAllergies Allergy/AdvReac Type Severity Reaction Status Date / Time No Known Allergies Allergy Verified 04/16/22 19:21 Home Medications Medication Instructions Recorded Confirmed Type cephalexin 500 mg capsule 500 mg PO TID 5 days #15 caps 04/14/2204/06 Rx albuterol sulfate 2.5 mg/3 mL 2.5 mg inhalation QPM 04/16/22 04/16/22 History (0.083 %) solution for nebulization apixaban 5 mg tablet (Eliquis) 5 mg PO BID 04/16/22 04/16/22 History bisoprolol 2.5 1 tab PO HS 04/16/22 04/16/22 History mg-hydrochlorothiazide 6.25 mg tablet bupropion HCl 150 mg tablet,12 hr 150 mg PO BID 04/16/22 History sustained-release calcium carbonate 600 mg-vitamin 1 tab PO BID 04/16/22 2 History D3 10 mcg (400 unit) tablet cetirizine 10 mg tablet 10 mg PO DAILY 04/16/22 04/16/22 History fluticasone 250 mcg-salmeterol 50 1 inh inhalation BID 04/16/2204/16 History mcg/dose blistr powdr for inhalation (Wixela Inhub) hydrochlorothiazide 25 mg tablet 25 mg PO DAILY 04/16/22 2 History omega 7-wps-lgq-fish oil 1,000 mg 1 cap PO DAILY 04/16/22 History (120 mg-180 mg) capsule (Fish Oil) omeprazole 40 mg capsule,delayed 40 mg PO DAILY 04/16/22 2 History release rosuvastatin 5 mg tablet (Crestor) 5 mg PO HS 04/16/2204/16 History tiotropium bromide 18 mcg capsule 18 mcg inhalation DAILY 04/16/22 History with inhalation device (Spiriva with HandiHaler) Past Med/Surg History Medical History Cardiac disease detention current use of anticoagulant Surgical History History of ankle surgery Social History Smoking Status: Former smoker Tobacco Type: Cigarettes and E-cigarettes / Vaping Second Hand Exposure: No; Do You Dip or Chew Tobacco: No; Tobacco Cessation Education Requested by Patient: No Hx Alcohol Use: Yes Alcohol type: wine Hx Substance Use: No Preferred Language: [place] Islander Communication Ability: Effective Telecom Billing Analyst Required: No Beliefs That Will Affect Care: None Current Living Situation: Family Current Living Situation Comment: Pt son and lives with pt in downstairs appartment Other Information That Helps Us Care for You: No Feels Safe at Home: Yes Safety Concerns: Feels Safe At This Time Assistive Devices: Cane and Glasses Review of Systems Review of Systems: As per HPI, all other systems reviewed and negative Allergies Allergy/AdvReac Type Severity Reaction Status Date / Time No Known Allergies Allergy Verified 04/16/22 19:21 Home Medications Medication Instructions Recorded Confirmed Type cephalexin 500 mg capsule 500 mg PO TID 5 days #15 caps 04/14/22 04/16/22 Rx albuterol sulfate 2.5 mg/3 mL 2.5 mg inhalation QPM 04/16/22 04/16/22 History (0.083 %) solution for nebulization apixaban 5 mg tablet (Eliquis) 5 mg PO BID 04/16/22 04/16/22 History bisoprolol 2.5 1 tab PO HS 04/16/22 04/16/22 History mg-hydrochlorothiazide 6.25 mg tablet bupropion HCl 150 mg tablet,12 hr 150 mg PO BID 04/16/22 04/16/22 History sustained-release calcium carbonate 600 mg-vitamin 1 tab PO BID 04/16/22 04/16/22 History D3 10 mcg (400 unit) tablet cetirizine 10 mg tablet 10 mg PO DAILY 04/16/22 04/16/22 History fluticasone 250 mcg-salmeterol 50 1 inh inhalation BID 04/16/22 04/16/22 History mcg/dose blistr powdr for inhalation (Wixela Inhub) hydrochlorothiazide 25 mg tablet 25 mg PO DAILY 04/16/22 04/16/22 History omega 2-jpx-asc-fish oil 1,000 mg 1 cap PO DAILY 04/16/22 04/16/22 History (120 mg-180 mg) capsule (Fish Oil) omeprazole 40 mg capsule,delayed 40 mg PO DAILY 04/16/22 04/16/22 History release rosuvastatin 5 mg tablet (Crestor) 5 mg PO HS 04/16/22 04/16/22 History tiotropium bromide 18 mcg capsule 18 mcg inhalation DAILY 04/16/22 04/16/22 History with inhalation device (Spiriva with HandiHaler) Patient History Medical History Cardiac disease detention current use of anticoagulant Surgical History History of ankle surgery Social History Smoking Status: Former smoker Tobacco Type: Cigarettes and E-cigarettes / Vaping Second Hand Exposure: No; Do You Dip or Chew Tobacco: No; Tobacco Cessation Education Requested by Patient: No Hx Alcohol Use: Yes Alcohol type: wine Hx Substance Use: No Preferred Language: [place] Islander Communication Ability: Effective Telecom Billing Analyst Required: No Beliefs That Will Affect Care: None Current Living Situation: Family Current Living Situation Comment: Pt son and lives with pt in downstairs appartment Other Information That Helps Us Care for You: No Feels Safe at Home: Yes Safety Concerns: Feels Safe At This Time Assistive Devices: Cane and Glasses Physical Exam Constitutional: WD/WN, vitals as above Eyes: PERRL, conjunctivae normal, anicteric sclerae Neck: trachea midline, no thyromegaly Respiratory: normal respiratory effort, lungs clear to auscultation Cardiovascular: RRR, no murmur, no edema Gastrointestinal (Abdomen): normal bowel sounds, soft, nontender, no hepatosplenomegaly Musculoskeletal: left lower laceration with sutures, mild redness, mild tenderness, no drainage, distal pulse ++ Neurologic: patellar DTR's 2+ bilat, sensation intact Psychiatric: A+Ox3, euthymic affect Results & Data ([facility]) Vital Signs (Past 12 Hours) Vital Signs Temp Pulse Pulse Pulse Resp BP BP 04/17/22 09:20 04/17/22 07:28 36.7 C 76 16 121/75 04/17/22 02:45 04/17/22 02:29 36.5 C 74 18 104/67 04/17/22 02:20 36.5 C 74 18 104/67 04/17/22 01:57 89 18 150/73 H 04/17/22 01:20 89 18 124/78 04/16/22 23:47 77 18 04/16/22 23:29 90 18 151/69 H Pulse Ox O2 Del Method 04/17/22 09:20 Room Air 04/17/22 07:28 92 Room Air 04/17/22 02:45 Room Air 04/17/22 02:29 95 Room Air 04/17/22 02:20 95 Room Air 04/17/22 01:57 94 Room Air 04/17/22 01:20 96 Room Air 04/16/22 23:47 94 Room Air 04/16/22 23:29 98 Laboratory Results Abnormal lab results 04/16/22 04/16/22 04/16/22 Range/Units 18:45 18:45 20:10 RBC (3.93-5.22) M/uL MCV 104.0 H (80.0-100.0) fL MCH 34.3 H (25.0-34.0) pg RDW Std Deviation 50.6 H (36.4-46.3) fL Addison # (Auto) 0.93 H (0.24-0.82) K/uL Sodium 135 L (136-145) mmol/L Glucose 111 H (70-99(Fasting)) mg/dl AST 66 H (13-39) U/L Urine Ketones Trace H (Negative) Ur Leukocyte Esterase 1+ H (Negative) Urine WBC (Auto) 10-30 H (0-5) /hpf U Epithel Cells (Auto) >30 H (0-5) /lpf Urine Bacteria (Auto) 1+ H (Negative) 04/17/22 04/17/22 Range/Units 06:24 06:24 RBC 3.82 L (3.93-5.22) M/uL MCV 102.4 H (80.0-100.0) fL MCH 34.3 H (25.0-34.0) pg RDW Std Deviation 49.9 H (36.4-46.3) fL Addison # (Auto) (0.24-0.82) K/uL Sodium 135 L (136-145) mmol/L Glucose 103 H (70-99(Fasting)) mg/dl AST (13-39) U/L Urine Ketones (Negative) Ur Leukocyte Esterase (Negative) Urine WBC (Auto) (0-5) /hpf U Epithel Cells (Auto) (0-5) /lpf Urine Bacteria (Auto) (Negative) Diagnostic Findings CT tib/fib LT w con HISTORY: 76 years-old Female swelling acute pain and swelling of the left lower leg COMPARISON: Tibia and fibula radiographs 04/14/2022 TECHNIQUE: Multiple axial CT images of the left tibia and fibula were obtained following the intravenous administration of 81 mL Optiray 320. A dose lowering technique was used consistent with the principals of ALARA. FINDINGS: There is moderate diffuse subcutaneous edema, most pronounced anterolaterally. Trace focus of subcutaneous emphysema noted on image 66 series 3 within the proximal pretibial tissues. In the proximal pretibial subcutaneous hematoma, 1.2 x 3.9 x 6.5 cm. Irregularity of the skin surface anteriorly is suggestive of probable laceration. No opaque foreign body. Tendons and ligaments are suboptimally evaluated by CT technique. Mild arterial calcifications. Osteoarthritis of the foot and ankle. There are a few loose bodies of the knee measuring up to 10 mm within the intercondylar notch posteriorly. No fracture findings of the distal tibia and fibula. ORIF changes of the distal fibula without evidence of hardware complication. IMPRESSION: 1. No acute osseous abnormality. 2. Subcutaneous edema with 6.5 cm pretibial subcutaneous hematoma. 3. Minimal subcutaneous emphysema within the pretibial tissues is likely secondary to penetrating trauma. Gas-forming organism considered less likely. ACT 112: Negative or not required by law.
[2022-04-17] MEDS ORDERED: ALBUTEROL 0.083% NEBU SOLN 3 ML VIAL NEB PRN (16:50)
--- NOTE | 2022-04-17 23:55 | Hospitalist Progress Note ---
Date of Service April 17, 2022 Assessment & Plan (1) Left leg swelling: Plan: History traumatic leg wound. CT LLE showed no acute osseous abnormality. Subcutaneous edema with 6.5 cm pretibial subcutaneous hematoma. Minimal subcutaneous emphysema within the pretibial tissues is likely secondary to penetrating trauma. Received IV abx ceftriaxone in the ER Initialy ortho was concerned about necrotizing fasciitis on preliminary report that recommended transfer to tertiary care Pervious team discussed the case with Drs. Little (Orthopedics) and Rohith (General surgery ) at [facility] that declined the transfer until patient evaluated by [facility] Orthopedics. Surgery and ortho on board that recommended no surgical intervention at this time. Continue IV abx for now Currently pt is on Dapto, Zosyn and clindamycin Wound cx pending Clinically stable Hx COPD Mild wheezing at baseline Continue albuterol neb treatment Stable Hypertension BP stable will resume HCTZ and continue betablocker Hyperlipidemia continue statin Anxiety/mood disorder Continue Buproprion Stable hx Afib rate control with beta matt On Eliquis DVT prophylaxis. on SCDs while Eliquis on hold, will resume Full code Admission and Anticipated Discharge Date Admission Date: April 16, 2022 Subjective Pt was seen and examined for follow up of left LE wound infection Lying in bed with no acute distress. Pt said that she feels fine Pt said that she is from [place] that she has to go back in the next few days. Denies any chest pain, palpitation, dizziness and SOB Review of Systems Review of Systems: All systems reviewed & are unremarkable except as noted in Subjective Physical Exam Physical Exam: General- No acute distress Head- atraumatic Eyes- PERRL, EOMI, ENT- oropharynx clear Neck- supple, no JVD Lungs- clear to auscultation Heart- regular rhythm; no murmur Abdomen- normal bowel sounds, soft, nontender Extremities- no calf tenderness, redness, LLE mild tenderness and swelling with serosanguineous drainage Neuro- alert, oriented x 3; PERRL, EOMI; no facial palsy; no dysarthria Skin- warm & dry Results & Data Results & Data ([facility]) Vital Signs (Past 12 Hours) Vital Signs Temp Pulse Resp BP Pulse Ox O2 Del Method FiO2 04/17/22 23:35 20 95 21 04/17/22 23:18 92 H 18 93 Room Air 04/17/22 21:15 36.9 C 87 18 123/81 92 Room Air 04/17/22 17:06 90 18 90 Nasal Cannula 04/17/22 15:37 Room Air, CPAP 04/17/22 14:43 36.8 C 86 18 117/77 96 Room Air
[2022-04-18] MEDS ORDERED: COUGH DROP (SUGAR FREE) LOZ 24 LOZ/1 BOX BUCCAL ONE (00:08)
[2022-04-18] MEDS ORDERED: DAPTOmycin 300 MG in SYRINGE 0 ML IV SCH (01:00)
[2022-04-18] MEDS: CLINDAMYCIN/D5W 600 MG/50 ML BAG IV SCH ×2 (01:13→09:13)
[2022-04-18] MEDS: PIPERACILLIN/TAZOBACTAM 4.5 GM in DEXTROSE 5% 100 ML IV SCH (06:20)
--- NOTE | 2022-04-18 08:56 | Progress Notes ---
DATE OF SERVICE: 04/18/2022. SUBJECTIVE: A 76-year-old female status post left leg wound, admitted with concerns of infection. S he is doing quite a bit better this morning. She has been elevating in the past 24 hours and leg swe lling is improved. Pain is improved. She is hoping to go home. She says she needs to get back to [facility]. OBJECTIVE: VITAL SIGNS: Temperature 36.9. Vital signs are stable. EXTREMITIES: Physical examination of left leg reveals the swelling to be improved. The blistering o f the skin is actually resolved. There has been no further drainage. She does have a significant he matoma, likely from hematoma. There is no tenseness to the muscle compartments. She can dorsi flex and plantarflex her foot appropriately. She is neurologically intact. CULTURE RESULTS: She has some culture results growing gram-negative bacilli, but it is probably a vanessa rly nonspecific and inaccurate as this was most likely just a skin culture, which could grow out anyt pennie. ASSESSMENT: A 76-year-old female status post left leg wound with swelling. There is no real active signs of infection. She was on blood thinner with very thin tenuous soft tissue envelope. It has do ne much better over the past 24 hours, it is just elevation and limited activity. PLAN: At this point, we would recommend just routine wound care. She should change the bandage once a day. It is fine for her to get in the shower. I think it is appropriate to keep her on maybe 10 days of antibiotics with broad-spectrum coverage. Likely select something like Augmentin. I think s he is orthopedically okay for discharge. There are no signs of progressive infection from the clinic al standpoint. She will need to follow up for suture removal in about 2-3 weeks. Any orthopedic que stions can be directed to me at [phone]. Job ID: [id number]
[2022-04-18] MEDS: FLUTICASONE/VILANTEROL 200/25MCG 14 PUFFS/INHALER INH SCH (09:14)
[2022-04-18] MEDS: buPROPion SR 150 MG TABCR PO SCH (09:14)
[2022-04-18] MEDS: METOPROLOL TARTRATE 25 MG TAB PO SCH (09:14)
[2022-04-18] MEDS: PANTOprazole 40 MG TAB PO SCH (09:14)
[2022-04-18] MEDS: CETIRIZINE HCL 10 MG TABLET PO SCH (09:14)
[2022-04-18] MEDS: UMECLIDINIUM BROMIDE 62.5MCG/BLISTER 7 PUFFS/INHALER INH SCH (09:15)
[2022-04-18] MEDS ORDERED: APIXABAN 5 MG TABLET PO SCH (09:30)
[2022-04-18] MEDS ORDERED: hydroCHLOROthiazide 25 MG TAB PO SCH (09:30)
--- NOTE | 2022-04-18 10:39 | Surgery Progress Note ---
Date of Service April 18, 2022 Assessment & Plan (1) Left leg swelling: (2) Cellulitis: (3) Laceration of left lower leg: Plan Patient seen and examined with Dr. España. Patient admitted for left lower leg laceration (repaired in ED), hematoma, and left lower extremity cellulitis. Patient reports that pain is much improved as is left lower extremity swelling. Per Dr. Morrison, patient is ok for discharge to home. He reviewed dressing changes with her. PO antibiotics per hospitalist team. She is ok for discharge from General Surgery perspective. Admission and Anticipated Discharge Date Admission Date: April 16, 2022 Subjective Aditi is resting in bed, eating breakfast. She reports that she is doing well. She states that Dr. Morrison was in to see her and from his perspective feels that she is ok for discharge to home with home health. Review of Systems Constitutional: no fever and no chills Integumentary: as per Subjective / HPI Physical Exam Constitutional: WD/WN, vitals as above Respiratory: no respiratory distress Skin: Left lower extremity with dressing in place. Results & Data ([facility]) Vital Signs (Past 12 Hours) Vital Signs Temp Pulse Pulse Resp BP Pulse Ox O2 Del Method 04/18/22 07:35 37 C 80 20 142/89 H 92 Room Air 04/18/22 03:10 21 95 04/17/22 23:35 20 95 04/17/22 23:18 92 H 18 93 Room Air FiO2 04/18/22 07:35 04/18/22 03:10 21 04/17/22 23:35 21 04/17/22 23:18 PG Care Time/CCT Total # of Minutes Spent Total Time Spent with Patient: Total time spent is greater than 50% in coordination of care (as documented) at patient's floor/unit and/or counseling patient: Coding Level of Care Code None Diagnoses Left leg swelling M79.89 Cellulitis L03.90 Laceration of left lower leg S81.812A
[2022-04-18] MEDS ORDERED: AMOXICILLIN/CLAVULANATE 875 MG TAB PO SCH (13:50)
--- NOTE | 2022-04-30 09:59 | Discharge Summary ---
Date of Service April 18, 2022 Admission HPI Per Admitting Provider History obtained from patient and records. Medical history significant for COPD, A. fib on Eliquis, hypertension, hyperlipidemia, chronic balance issues from inner ear problems, anxiety/mood disorder, prediabetes, past tobacco abuse. Patient is a resident of [place], [place] currently visiting family at [facility] since last week. 2 days ago, patient [place] secondary to her balance issues. No LOC, no syncope, no head trauma, no chest pain, no SOB. Traumatic left leg laceration resulting from fall. Patient brought to the [facility] ER for evaluation. Wound subsequently sutured. Patient discharged on Keflex course. Worsening left leg wound, redness, painful leg swelling with serosanguineous drainage for the next few days. No chest pain, no SOB. Some chills, no actual fever. Patient returned to ER. IV ceftriaxone administered at the ER. Medical History as above Surgical History : Ankle surgery, hip surgery, nasal septoplasty Family History : Heart disease Personal/Social history : Past tobacco abuse, occasional EtOH intake, retired from office work Admission Exam Per Admitting Provider GENERAL: Comfortable, pleasant, obese, no respiratory distress SKIN: Normal color, warm HEENT: [place]pect[place]led, [place] palpebral conjunctivae, no ptosis, dry buccal mucosa NECK : Supple, no tenderness CHEST : Decreased breath sounds, expiratory wheezes, no tenderness HEART : Irregular, no obvious murmurs ABDOMEN: Some distention, nontender EXTREMITIES : Tender LLE induration with sutures in place, no other conspicuous deformities noted NEUROLOGIC : Coherent, no facial asymmetry, no other gross focality Principal Diagnosis Left leg swelling: History traumatic leg wound. Hx COPD Hypertension Hyperlipidemia History Atrial fibrillation Anxiety Mood disorder Discharge Exam General- No acute distress Head- atraumatic Eyes- PERRL, EOMI, ENT- oropharynx clear Neck- supple, no JVD Lungs- clear to auscultation Heart- regular rhythm; no murmur Abdomen- normal bowel sounds, soft, nontender Extremities- no calf tenderness, redness, LLE mild tenderness and swelling with serosanguineous drainage Neuro- alert, oriented x 3; PERRL, EOMI; no facial palsy; no dysarthria Skin- warm & dry Discharge Data Allergies Allergy/AdvReac Type Severity Reaction Status Date / Time No Known Allergies Allergy Verified 04/16/22 19:21 Consultations 04/16/22 21:01 ED Decision to Admit Stat 04/17/22 01:35 Consult General Surgery Routine Consult Orthopedic Surgery Routine Ordered Studies 04/16/22 22:11 CT tib/fib LT w con Urgent CT tib/fib LT w con HISTORY: 76 years-old Female swelling acute pain and swelling of the left lower leg COMPARISON: Tibia and fibula radiographs 04/14/2022 TECHNIQUE: Multiple axial CT images of the left tibia and fibula were obtained following the intravenous administration of 81 mL Optiray 320. A dose lowering technique was used consistent with the principals of MARLO. FINDINGS: There is moderate diffuse subcutaneous edema, most pronounced anterolaterally. Trace focus of subcutaneous emphysema noted on image 66 series 3 within the proximal pretibial tissues. In the proximal pretibial subcutaneous hematoma, 1.2 x 3.9 x 6.5 cm. Irregularity of the skin surface anteriorly is suggestive of probable laceration. No opaque foreign body. Tendons and ligaments are suboptimally evaluated by CT technique. Mild arterial calcifications. Osteoarthritis of the foot and ankle. There are a few loose bodies of the knee measuring up to 10 mm within the intercondylar notch posteriorly. No fracture findings of the distal tibia and fibula. ORIF changes of the distal fibula without evidence of hardware complication. IMPRESSION: 1. No acute osseous abnormality. 2. Subcutaneous edema with 6.5 cm pretibial subcutaneous hematoma. 3. Minimal subcutaneous emphysema within the pretibial tissues is likely secondary to penetrating trauma. Gas-forming organism considered less likely. ACT 112: Negative or not required by law. The above report was generated using voice recognition software. It may contain grammatical, syntax or spelling errors. Electronically signed by: Julius Tavarez M.D. 04/17/2022 7:37 AM Dictated:04/17/22 0732 Transcribed: 04/17/22 0732 XR chest 1V portable CLINICAL HISTORY: wheeze COMPARISON STUDY: No previous studies for comparison. FINDINGS: Lung volumes are normal. No pneumothorax or pleural effusion is present. No consolidation is identified to suggest pneumonia. There is mild cardiomegaly. Mild nonspecific interstitial thickening is present. IMPRESSION: 1. No consolidation to suggest pneumonia. 2. Mild nonspecific interstitial thickening. ACT 112: Negative or not required by law. Electronically signed by: Naresh Arriaga M.D. 04/17/2022 8:02 AM Dictated:04/17/22 0800 Transcribed: 04/17/22 08 Hospital Course (1) Left leg swelling: History traumatic leg wound. CT LLE showed no acute osseous abnormality. Subcutaneous edema with 6.5 cm pretibial subcutaneous hematoma. Minimal subcutaneous emphysema within the pretibial tissues is likely secondary to penetrating trauma. Received IV abx ceftriaxone in the ER Initialy ortho was concerned about necrotizing fasciitis on preliminary report that recommended transfer to tertiary care Pervious team discussed the case with Drs. Little (Orthopedics) and Rohith (General surgery ) at [facility] that declined the transfer until patient evaluated by [facility]. Surgery and ortho on board that recommended no surgical intervention at this time. Continue IV abx for now Currently pt is on Dapto, Zosyn and clindamycin Wound cx pending Clinically stable Hx COPD Mild wheezing at baseline Continue albuterol neb treatment Stable Hypertension BP stable will resume HCTZ and continue betablocker Hyperlipidemia continue statin Anxiety/mood disorder Continue Buproprion Stable hx Afib rate control with beta matt On Eliquis DVT prophylaxis. on SCDs while Eliquis on hold, will resume Full code Total Time Total Time Spent Total Time Spent (In Minutes): 35 minutes Discharge Plan Discharge Items Patient Disposition: Home - Self-Care Reason For Visit: LLE CELLULITIS, FAILED OUTPX Discharge Diagnosis: Left leg swelling: History traumatic leg wound. Hx COPD Hypertension Hyperlipidemia History Atrial fibrillation Activity: Resume your previous activity Non-emergency contact: Primary Care Provider Call non-emergency contact if: you have any medication questions, your temperature is above 101, your wound has increased redness, your wound has increased drainage and your wound pain has increased Follow-up/Referrals: PCP,NO [Primary Care Provider] - Diet: Heart Healthy Addtl Attending Provider Instructions: Follow up with your primary care provider In [facility] on Wednesday Completes the course of the antibiotic with Augmentin Continue daily wound care You provider or case management in [place] will need to arrange for home health service to help with wound care Seek medical attention if you develop any fever, chills or wound get worst Pending Studies at Discharge: No Stand-Alone Forms: [employer], Smoking Cessation Medications and DC Order Prescriptions: Continued bupropion HCl 150 mg tablet sustained-release 12 hr 150 mg PO BID fluticasone propion-salmeterol [Wixela Inhub] 250-50 mcg/dose blister with device 1 inh INHALATION BID albuterol sulfate 2.5 mg /3 mL (0.083 %) solution for nebulization 2.5 mg inhalation QPM Rx Instructions: MAY USE Q6H IF NEEDED FOR SHORTNESS OF BREATH. cetirizine 10 mg tablet 10 mg PO DAILY omeprazole 40 mg capsule,delayed release(DR/EC) 40 mg PO DAILY bisoprolol-hydrochlorothiazide 2.5-6.25 mg tablet 1 tab PO HS hydrochlorothiazide 25 mg tablet 25 mg PO DAILY rosuvastatin [Crestor] 5 mg tablet 5 mg PO HS Spiriva with HandiHaler 18 mcg capsule, w/inhalation device 18 mcg INHALATION DAILY calcium carbonate-vitamin D3 600 mg-10 mcg (400 unit) tablet 1 tab PO BID omega [id number] oil [Fish Oil] 1,000 mg (120 mg-180 mg) Capsule 1 cap PO DAILY Eliquis 5 mg tablet 5 mg PO BID Discontinued cephalexin 500 mg capsule 500 mg PO TID 5 Days Qty: 15 0RF Rx Instructions: STARTED 04/14/22 Discharge Orders: Discharge Order (Routine); Ordered 04/18/22 Ordered By: Cindy Marie Admission Data Admit Date/Time: 04/16/22 22:26 Attending Provider: Cidny Marie Admit Provider: Teddy Reed Primary Care Provider: PCP,NO Other Providers: Felix Mistry ; Danika Richards ; Ismael Morrison Other Interventions: Discharge Summary Assessment (RN) Last Done: 04/18/22 14:01
== END 2022-04-18 15:00 | disposition home or self-care (01) | DRG 605 ==
LOC: ED 16:24 → 3W 22:26
DX: F41.9 Anxiety disorder, unspecified; J44.9 Chronic obstructive pulmonary disease, unspecified; E78.5 Hyperlipidemia, unspecified; Y92.89 Other specified places as the place of occurrence of the external cause; S80.12XA Contusion of left lower leg, initial encounter; I10 Essential (primary) hypertension; S81.812A Laceration without foreign body, left lower leg, initial encounter; W19.XXXA Unspecified fall, initial encounter; F39 Unspecified mood [affective] disorder; Z79.01 Long term (current) use of anticoagulants; I48.91 Unspecified atrial fibrillation; Z87.891 Personal history of nicotine dependence